=== PATIENT | male | born 2000 ===

== ENCOUNTER 2022-05-08 06:20 | Day surgery (SDC) | payer OTHER ==
[2022-05-08] MEDS ORDERED: PERCOCET 5-3251 EACH PO (10:32)
[2022-05-08] MEDS ORDERED: NEURONTIN300 MG PO (10:32)
[2022-05-08] MEDS ORDERED: KETO10TA2 PO (10:32)
[2022-05-08] MEDS ORDERED: DERMOPLAST PAIN78 GM TOP (10:33)
== END 2022-05-08 14:50 | disposition home or self-care (01) ==
LOC: CIR.AMB 06:20
PROVIDERS: ATTEND Surgery
DX: K60.1 Chronic anal fissure (principal); K62.5 Hemorrhage of anus and rectum; K59.4 Anal spasm; Z20.822 Contact with and (suspected) exposure to COVID-19; A60.1 Herpesviral infection of perianal skin and rectum; Z71.6 Tobacco abuse counseling; F17.210 Nicotine dependence, cigarettes, uncomplicated